=== PATIENT | male | born 1985 | race Hispanic/Latino ===

== ENCOUNTER 2017-07-08 04:06 | Emergency (ER) | payer BC ==
[2017-07-08 04:06] VITALS: BMI 28.2
[2017-07-08 04:20] VITALS: BP 146/82; PULSE 82; RESP 16; TEMP 98.7; O2SAT 99
[2017-07-08] MEDS ORDERED: Sodium Chloride 0.9% 1,000 ML IV STA (04:44)
--- NOTE | 2017-07-08 05:00 | ED PDOC ---
HPI: Abdomen Time Seen by Provider: 07/08/17 04:28 Chief Complaint (Nursing): Abdominal Pain Chief Complaint (Provider): abdominal pain History Per: Patient Additional Complaint(s): Patient presents to ED with LLQ pain that started yesterday associated with increased urinary frequency. Patient states since yesterday he has noticed that pain is increasing in intensity. Patient has not taken any meds for pain relief. He denies any fever or chills, denies any nausea, vomiting or diarrhea. No meds taken for pain relief. Patient rates current pain as 8/10. Past Medical History Reviewed: Historical Data, Nursing Documentation, Vital Signs Vital Signs: Last Vital Signs Temp 98.7 F 07/08/17 04:17 Pulse 82 07/08/17 04:17 Resp 16 07/08/17 04:17 BP 146/82 07/08/17 04:17 Pulse Ox 99 07/08/17 05:28 - Medical History PMH: HTN - Surgical History Surgical History: Cholecystectomy - Family History Family History: States: No Known Family Hx - Living Arrangements Living Arrangements: With Family - Social History Current smoker - smoking cessation education provided: No Alcohol: None Drugs: Denies - Home Medications Home Medications: Ambulatory Orders Medication Instructions Recorded Azilsartan Medoxomil [Edarbi] 80 mg PO DAILY 02/28/15 Loratadine [Claritin] 10 mg PO DAILY 02/28/15 - Allergies Allergies/Adverse Reactions: Allergies Allergy/AdvReac Type Severity Reaction Status Date / Time shellfish derived Allergy ANAPHYLAXIS Verified 07/08/17 04:20 Review of Systems ROS Statement: Except As Marked, All Systems Reviewed And Found Negative Constitutional: Negative for: Fever, Chills Cardiovascular: Negative for: Chest Pain Respiratory: Negative for: Cough Gastrointestinal: Positive for: Abdominal Pain. Negative for: Nausea, Vomiting , Diarrhea, Constipation Genitourinary Male: Negative for: Dysuria, Frequency Physical Exam - Reviewed Nursing Documentation Reviewed: Yes Vital Signs Reviewed: Yes - Physical Exam Appears: Positive for: Well, Non-toxic, No Acute Distress Skin: Negative for: Rash Eye Exam: Positive for: Normal appearance Cardiovascular/Chest: Positive for: Regular Rate, Rhythm Respiratory: Positive for: Normal Breath Sounds Gastrointestinal/Abdominal: Positive for: Tenderness (LLQ), Guarding (mild). Negative for: Distended, Rebound Back: Negative for: L CVA Tenderness, R CVA Tenderness, Vertebral Tenderness Extremity: Positive for: Normal ROM Neurologic/Psych: Positive for: Alert, Oriented - Laboratory Results Result Diagrams: 07/08/17 04:55 07/08/17 04:55 Urine dip results: Negative for: Leukocyte Esterase, Blood, Nitrate, Ketones, Glucose, Bilirubin, Protein - ECG O2 Sat by Pulse Oximetry: 99 Pulse Ox Interpretation: Normal Medical Decision Making Medical Decision Makin31 year old with abd pain Plan: CBC CMP Lipase U dip IVF IV toradol CT abd and pelvis with IV contrast Patient has history of shellfish allergy. He has never has CT with contrast. Case was d/w Dr. Jarrell, patient will be pre-medicated with 50 mg IV benadryl prior to CT. Disposition - Clinical Impression Clinical Impression: Abdominal pain - Patient ED Disposition Is Patient to be Admitted: Transfer of Care - Disposition Disposition: Transfer of Care Disposition Time: 05:51 Condition: STABLE Forms: [employer] (Albanian) Patient Signed Over To: Joey Jarrell Handoff Comments: Case was signed out Dr Jarrell pending CT and final dispo Results - Lab Results Lab Results: 07/08/17 07/08/17 07/08/17 05:17 04:55 04:55 WBC 11.6 H RBC 5.11 Hgb 15.4 Hct 45.7 MCV 89.3 MCH 30.2 MCHC 33.8 RDW 12.8 Plt Count 252 MPV 8.7 Neut % (Auto) 50.0 Lymph % (Auto) 36.8 [place] % (Auto) 7.5 Eos % (Auto) 5.3 H Baso % (Auto) 0.4 Neut # 5.8 Lymph # 4.3 [place] # 0.9 H Eos # 0.6 Baso # 0.0 Sodium 142 Potassium 3.8 Chloride 102 Carbon Dioxide 24 Anion Gap 19 BUN 19 Creatinine 1.0 Est GFR ( Amer) > 60 Est GFR (Non-Af Amer) > 60 Random Glucose 102 Calcium 10.3 H Total Bilirubin 1.0 AST 39 ALT 64 Alkaline Phosphatase 129 H Total Protein 8.2 Albumin 4.8 Globulin 3.4 Albumin/Globulin Ratio 1.4 Lipase 95
[2017-07-08] MEDS ORDERED: DiphenhydrAMINE 50 mg/ml Inj IV STA (05:01)
[2017-07-08 05:06] LABS: BASO % 0.4 % (0.0-2.0); EOS # 0.6 K/uL (0.0-0.7); EOS % 5.3 % (0.0-4.0); HEMATOCRIT 45.7 % (35.0-51.0); LYMPH # 4.3 K/uL (1.0-4.3); LYMPH % 36.8 % (20.0-40.0); MEAN CELL VOLUME 89.3 fl (80.0-94.0); MEAN CORPUSCULAR HEMOGLOBIN 30.2 pg (27.0-31.0); MEAN CORPUSCULAR HGB CONC 33.8 g/dL (33.0-37.0); MEAN PLATELET VOLUME 8.7 fl (7.2-11.7); MONO # 0.9 K/uL (0.0-0.8); MONO % 7.5 % (0.0-10.0); NEUT # 5.8 K/uL (1.8-7.0); NRBC % 0.2 % (0.0-0.0); RED CELL DISTRIBUTION WIDTH 12.8 % (11.5-14.5); WHITE BLOOD COUNT 11.6 K/uL (4.8-10.8)
[2017-07-08] MEDS ORDERED: DiphenhydrAMINE 50 mg/ml Inj ONE (05:08)
[2017-07-08] MEDS ORDERED: Iohexol 300 100 ML IJ ONE (05:25)
[2017-07-08 05:26] LABS: ALB/GLOB RATIO 1.4 (1.0-2.1); ALKALINE PHOSPHATASE 129 U/L (38-126); ALT/SGPT 64 U/L (21-72); AST/SGOT 39 U/L (17-59); BLOOD UREA NITROGEN 19 mg/dl (9-20); CALCIUM 10.3 mg/dL (8.4-10.2); CARBON DIOXIDE 24 mmol/L (22-30); CHLORIDE 102 mmol/L (98-107); GFR AFRICAN-AMERICAN > 60; GLUCOSE,RANDOM 102 mg/dL (75-110); POTASSIUM 3.8 MMOL/L (3.6-5.0); SODIUM 142 mmol/l (132-148); TOTAL PROTEIN 8.2 G/DL (6.3-8.2)
--- NOTE | 2017-07-08 06:23 | ED PDOC ---
- Laboratory Results Result Diagrams: 07/08/17 04:55 07/08/17 04:55 - ECG O2 Sat by Pulse Oximetry: 99 Medical Decision Making Medical Decision Makin Patient signed out to me pending CT. 06 CT FINDINGS Lower thorax: There is subpleural atelectasis of the dependent portions of the lungs. ABDOMEN: Liver: There is a focal right liver lobe hypodensity that cannot be further characterized on the current examination. Gallbladder and bile ducts: There has been a cholecystectomy. No ductal dilation. Pancreas: The pancreas is normal. No ductal dilation. Spleen: The spleen is normal. Adrenals: The adrenal glands are normal. Kidneys and ureters: The kidneys are normal. No hydronephrosis. Stomach and bowel: The stomach is normal. The duodenum is unremarkable. There is a segment of wall thickening at the junction of the sigmoid and descending colon, consistent with mild acute diverticulitis. There is mild pericolonic inflammatory stranding. No obstruction. Appendix: A normal appendix is identified. PELVIS: Bladder: The bladder is normal. Reproductive: The prostate gland and seminal vesicles are normal. ABDOMEN and PELVIS: Intraperitoneal space: Normal. No free air. No significant fluid collection. Bones/joints: No acute fracture. No dislocation. Soft tissues: Normal. Vasculature: Normal. No abdominal aortic aneurysm. Lymph nodes: Normal. No enlarged lymph nodes in. IMPRESSION: Mild acute diverticulitis. Patient is medically stable for discharge home. Dx: diverticulitis Scribe Attestation: Documented by Maile Tabares acting as a scribe for Joey Jarrell MD. Scribe Attestation: All medical record entries made by the Scribe were at my direction and personally dictated by me. I have reviewed the chart and agree that the record accurately reflects my personal performance of the history, physical exam, medical decision making, and the department course for this patient. I have also personally directed, reviewed, and agree with the discharge instructions and disposition. Disposition - Clinical Impression Clinical Impression: Abdominal pain, Diverticulitis - POA Present On Arrival: None - Disposition Referrals: Garc[facility] Av[facility] [Outside] Disposition: Routine/Home Disposition Time: 06:30 Condition: STABLE Prescriptions: Ciprofloxacin [Cipro] 500 mg PO BID 7 Days metroNIDAZOLE [Flagyl] 500 mg PO BID 7 Days Instructions: Diverticulitis (ED), Diverticulitis Diet (ED) Forms: [employer] (Croatian)
--- NOTE | 2017-07-08 10:57 | CT ---
PROCEDURE: CT Abdomen and Pelvis with contrast HISTORY: Left lower quadrant pain COMPARISON: None. TECHNIQUE: Contrast dose: 95 cc Omnipaque 300 Radiation dose: Total exam DLP = 1119.11 mGy-cm. This CT exam was performed using one or more of the following dose reduction techniques: Automated exposure control, adjustment of the mA and/or kV according to patient size, and/or use of iterative reconstruction technique. FINDINGS: LOWER THORAX: Unremarkable. LIVER: Unremarkable. No gross lesion or ductal dilatation. GALLBLADDER AND BILE DUCTS: Unremarkable. PANCREAS: Unremarkable. No gross lesion or ductal dilatation. SPLEEN: Unremarkable. ADRENALS: Unremarkable. No mass. KIDNEYS AND URETERS: Unremarkable. No hydronephrosis. No solid mass. VASCULATURE: Unremarkable. No aortic aneurysm. BOWEL: Focal and mild acute diverticulitis confined to the descending colon. No free air, free fluid or drainable collection. APPENDIX: Normal appendix. PERITONEUM: Unremarkable. No free fluid. No free air. LYMPH NODES: Unremarkable. No enlarged lymph nodes. BLADDER: Unremarkable. REPRODUCTIVE: Unremarkable. BONES: No acute fracture. OTHER FINDINGS: None. IMPRESSION: Mild focal descending colon diverticulitis at junction with the sigmoid colon. Concordant results (preliminary interpretation) provided by [employer]. Procedure Completed: 05:50 Preliminary ([facility]) Report: Dictated and Authenticated: 06:23 Final Interpretation: 11:54. July 08, 2017. 7
== END 2017-07-08 06:38 | disposition home or self-care (01) ==
LOC: H.ER 04:06
DX: K57.32 Diverticulitis of large intestine without perforation or abscess without bleeding (principal); I10 Essential (primary) hypertension; Z91.013 Allergy to seafood
CPT/HCPCS: 74177; 80053; 83690; 85025; 96374; 96375; 99282; J1200; J1885; J7040; Q9967

== ENCOUNTER 2017-09-03 07:37 | Day surgery (SDC) | payer BC ==
[2017-09-03] MEDS ORDERED: Lactated Ringer's 1,000 ML IV ONE (08:05)
[2017-09-03 08:25] VITALS: TEMP 98
[2017-09-03] MEDS ORDERED: Propofol 10 mg/ml Inj (20 ML) ONE (09:43)
[2017-09-03] MEDS ORDERED: Lidocaine 2% MPF (5 ml) Inj ONE (09:43)
[2017-09-03 10:07] VITALS: RESP 19; O2SAT 95
[2017-09-03 10:21] VITALS: BP 113/61; PULSE 95
== END 2017-09-03 10:22 | disposition home or self-care (01) ==
LOC: H.ENDO 07:37
PROVIDERS: ATTEND Internal Medicine Gastroenterology
DX: K57.92 Diverticulitis of intestine, part unspecified, without perforation or abscess without bleeding (principal); E78.5 Hyperlipidemia, unspecified; K64.8 Other hemorrhoids
CPT/HCPCS: 45378; J2704; J7120